=== PATIENT | male | born 1975 | race Caucasian/White ===

== ENCOUNTER 2017-08-05 19:11 | Inpatient (IN) | payer MEDICAID, OTHER ==
[2017-08-05 21:57] LABS: ADD MAN DIFF? NO
[2017-08-05 21:59] LABS: BASOPHIL # 0.1 10^3/ul (0.0-0.1); EOSINOPHILS # 0.1 10^3/ul (0.0-0.5); EOSINOPHILS % 1.7 % (0.0-7.0); HEMATOCRIT 48.5 % (42.0-52.0); HEMOGLOBIN 16.2 g/dl (14.0-18.0); LYMPHOCYTES # 1.6 10^3/ul (0.8-2.9); LYMPHOCYTES % 22.9 % (15.0-51.0); MEAN CORPUSCULAR HEMOGLOBIN 28.9 pg (29.0-33.0); MEAN CORPUSCULAR HGB CONC 33.4 g/dl (32.0-37.0); MEAN CORPUSCULAR VOLUME 86.5 fl (82.0-101.0); MEAN PLATELET VOLUME 9.6 fl (7.4-10.4); MONOCYTE # 0.3 10^3/ul (0.3-0.9); MONOCYTES % 4.7 % (0.0-11.0); NEUTROPHIL # 4.9 10^3/ul (1.6-7.5); NEUTROPHILS % 69.3 % (39.0-77.0); PLATELET COUNT 398 10^3/UL (140-415); RED BLOOD COUNT 5.61 10^6/ul (4.70-6.10); RED CELL DISTRIBUTION WIDTH 12.5 % (11.5-14.5)
[2017-08-05 22:15] LABS: ANION GAP 17 (8-16); BLOOD UREA NITROGEN 19 mg/dl (7-20); CALCIUM 9.8 mg/dl (8.4-10.2); CARBON DIOXIDE 22 mmol/L (21-31); CHLORIDE 109 mmol/L (97-110); CREATININE 1.26 mg/dl (0.61-1.24); GLUCOSE 117 mg/dl (70-220); POTASSIUM 3.9 mmol/L (3.5-5.1); SODIUM 144 mmol/L (135-144)
[2017-08-05] MEDS: SOD CHLORIDE 0.9% 500 ML IV (22:20)
[2017-08-05 22:28] LABS: B-TYPE NATRIURETIC PEPTIDE 6820 PG/ML (0-125); TROPONIN-I 0.029 ng/ml (0.000-0.120)
[2017-08-05] MEDS: ASPIRIN 81 MG TAB PO (23:02)
[2017-08-05] MEDS: ENALAPRILAT 1.25 MG INJ IV (23:02)
[2017-08-05 23:37] LABS: ALANINE AMINOTRANSFERASE 111 IU/L (13-69); ALBUMIN 3.7 g/dl (3.3-4.9); ALBUMIN/GLOBULIN RATIO 1.23; ALKALINE PHOSPHATASE 85 IU/L (42-121); ANION GAP 16 (8-16); ASPARTATE AMINO TRANSFERASE 62 IU/L (15-46); BILIRUBIN,INDIRECT 0.4 mg/dl (0-1.1); BILIRUBIN,TOTAL 0.4 mg/dl (0.2-1.3); BLOOD UREA NITROGEN 18 mg/dl (7-20); CALCIUM 9.2 mg/dl (8.4-10.2); CARBON DIOXIDE 19 mmol/L (21-31); CHLORIDE 112 mmol/L (97-110); CREATININE 1.17 mg/dl (0.61-1.24); GLUCOSE 117 mg/dl (70-220); LIPASE 145 U/L (23-300); POTASSIUM 3.8 mmol/L (3.5-5.1); SODIUM 143 mmol/L (135-144); TOTAL PROTEIN 6.7 g/dl (6.1-8.1)
[2017-08-05 23:45] LABS: B-TYPE NATRIURETIC PEPTIDE 5850 PG/ML (0-125)
[2017-08-05 23:49] LABS: INR 1.03; PROTIME 13.6 Sec (11.9-14.9); PT RATIO 1.1
[2017-08-05 23:50] LABS: PARTIAL THROMBOPLASTIN TIME 29.7 Sec (25.0-35.0)
[2017-08-06] MEDS: FUROSEMIDE 40 MG INJ IV (00:22)
[2017-08-06] MEDS ORDERED: ALBUTEROL/IPRATROPIUM (NEB) 3 ML AMP HHN (03:00)
[2017-08-06] MEDS ORDERED: ONDANSETRON 4 MG INJ IV (03:00)
[2017-08-06] MEDS ORDERED: NACL 0.9% 3 ML SYG IV (03:00)
[2017-08-06] MEDS ORDERED: NITROGLYCERIN (SL) 0.4 MG TAB SL (03:00)
[2017-08-06] MEDS ORDERED: morphine 2 MG INJ IV (03:00)
[2017-08-06 07:36] LABS: ADD MAN DIFF? NO
[2017-08-06 07:38] LABS: BASOPHIL # 0.1 10^3/ul (0.0-0.1); BASOPHILS % 0.8 % (0.0-2.0); EOSINOPHILS # 0.2 10^3/ul (0.0-0.5); EOSINOPHILS % 2.1 % (0.0-7.0); HEMATOCRIT 44.5 % (42.0-52.0); HEMOGLOBIN 14.7 g/dl (14.0-18.0); LYMPHOCYTES # 1.2 10^3/ul (0.8-2.9); MEAN CORPUSCULAR HEMOGLOBIN 28.7 pg (29.0-33.0); MEAN CORPUSCULAR VOLUME 86.7 fl (82.0-101.0); MEAN PLATELET VOLUME 10.1 fl (7.4-10.4); MONOCYTE # 0.5 10^3/ul (0.3-0.9); MONOCYTES % 6.7 % (0.0-11.0); NEUTROPHIL # 5.4 10^3/ul (1.6-7.5); NEUTROPHILS % 74.1 % (39.0-77.0); PLATELET COUNT 385 10^3/UL (140-415); RED BLOOD COUNT 5.13 10^6/ul (4.70-6.10); RED CELL DISTRIBUTION WIDTH 12.4 % (11.5-14.5)
[2017-08-06 07:38] LABS: WHITE BLOOD COUNT 7.3 10^3/ul (4.8-10.8)
[2017-08-06 07:57] LABS: HEMOGLOBIN A1C 5.8 % (0-5.9)
[2017-08-06 08:00] LABS: CREATINE KINASE 47 IU/L (23-200)
[2017-08-06 08:04] LABS: ALANINE AMINOTRANSFERASE 102 IU/L (13-69); ALBUMIN 3.9 g/dl (3.3-4.9); ALBUMIN/GLOBULIN RATIO 1.62; ALKALINE PHOSPHATASE 75 IU/L (42-121); ANION GAP 18 (8-16); ASPARTATE AMINO TRANSFERASE 45 IU/L (15-46); BILIRUBIN,INDIRECT 0.7 mg/dl (0-1.1); BILIRUBIN,TOTAL 0.7 mg/dl (0.2-1.3); BLOOD UREA NITROGEN 20 mg/dl (7-20); CALCIUM 9.1 mg/dl (8.4-10.2); CARBON DIOXIDE 25 mmol/L (21-31); CHLORIDE 105 mmol/L (97-110); CHOL/HDL RATIO 4.8 RATIO; CHOLESTEROL 145 mg/dl (100-200); GLUCOSE 93 mg/dl (70-220); HDL CHOLESTEROL 30 mg/dl (27-67); LDL CHOLESTEROL,CALCULATED 80 mg/dl; MAGNESIUM 1.8 mg/dl (1.7-2.5); POTASSIUM 3.1 mmol/L (3.5-5.1); SODIUM 145 mmol/L (135-144); TOTAL PROTEIN 6.3 g/dl (6.1-8.1); TRIGLYCERIDES 174 mg/dl (0-149)
[2017-08-06 08:11] LABS: CK INDEX 2.4; TROPONIN-I 0.029 ng/ml (0.000-0.120)
[2017-08-06 08:14] LABS: CK-MB 1.14 ng/ml (0.0-2.4)
[2017-08-06] MEDS: FUROSEMIDE 20 MG INJ IV (09:28)
[2017-08-06] MEDS: HEPARIN 5,000 UNIT/0.5 ML VIAL SC ×2 (09:29→21:04)
[2017-08-06 11:04] LABS: CREATINE KINASE 48 IU/L (23-200)
[2017-08-06 11:13] LABS: CK INDEX 2.7; TROPONIN-I 0.021 ng/ml (0.000-0.120)
[2017-08-06 11:15] LABS: CK-MB 1.31 ng/ml (0.0-2.4)
[2017-08-06 12:09] LABS: FREE T4 (FREE THYROXINE) 1.15 ng/dl (0.64-1.79); T4 (THYROXINE) 10.2 ug/dl (5.5-11.0)
[2017-08-06] MEDS ORDERED: POTASSIUM CHLORIDE (SR) 20 MEQ TAB PO (12:09)
[2017-08-06] MEDS: POTASSIUM CHLORIDE (SR) 20 MEQ TAB PO (12:11)
[2017-08-06] MEDS: AMLODIPINE 10 MG TAB PO (15:51)
[2017-08-06] MEDS ORDERED: morphine LIQ (10 MG/5 ML) CUP PO (22:00)
[2017-08-07 06:41] LABS: ADD MAN DIFF? NO
[2017-08-07 06:46] LABS: WHITE BLOOD COUNT 6.3 10^3/ul (4.8-10.8)
[2017-08-07 06:46] LABS: BASOPHIL # 0.1 10^3/ul (0.0-0.1); BASOPHILS % 0.8 % (0.0-2.0); EOSINOPHILS # 0.2 10^3/ul (0.0-0.5); EOSINOPHILS % 2.5 % (0.0-7.0); HEMATOCRIT 45.2 % (42.0-52.0); HEMOGLOBIN 15.2 g/dl (14.0-18.0); LYMPHOCYTES # 1.3 10^3/ul (0.8-2.9); LYMPHOCYTES % 20.8 % (15.0-51.0); MEAN CORPUSCULAR HEMOGLOBIN 28.9 pg (29.0-33.0); MEAN CORPUSCULAR HGB CONC 33.6 g/dl (32.0-37.0); MEAN CORPUSCULAR VOLUME 85.9 fl (82.0-101.0); MEAN PLATELET VOLUME 9.8 fl (7.4-10.4); MONOCYTE # 0.5 10^3/ul (0.3-0.9); MONOCYTES % 7.3 % (0.0-11.0); NEUTROPHIL # 4.3 10^3/ul (1.6-7.5); NEUTROPHILS % 68.3 % (39.0-77.0); PLATELET COUNT 375 10^3/UL (140-415); RED BLOOD COUNT 5.26 10^6/ul (4.70-6.10); RED CELL DISTRIBUTION WIDTH 12.5 % (11.5-14.5)
[2017-08-07 07:16] LABS: ANION GAP 15 (8-16); BLOOD UREA NITROGEN 18 mg/dl (7-20); CALCIUM 8.9 mg/dl (8.4-10.2); CARBON DIOXIDE 27 mmol/L (21-31); CHLORIDE 105 mmol/L (97-110); CREATININE 1.12 mg/dl (0.61-1.24); GLUCOSE 98 mg/dl (70-220); PHOSPHORUS 4.6 mg/dl (2.5-4.9); POTASSIUM 3.4 mmol/L (3.5-5.1); SODIUM 144 mmol/L (135-144)
[2017-08-07] MEDS: HEPARIN 5,000 UNIT/0.5 ML VIAL SC ×2 (08:45→20:48)
[2017-08-07] MEDS: AMLODIPINE 10 MG TAB PO (08:45)
[2017-08-07] MEDS: FUROSEMIDE 40 MG INJ IV (08:46)
[2017-08-07] MEDS: POTASSIUM CHLORIDE (SR) 20 MEQ TAB PO (10:46)
[2017-08-07] MEDS ORDERED: NICOTINE POLACRILEX 2 MG GUM BUCCAL (18:00)
[2017-08-08 06:14] LABS: ANION GAP 15 (8-16); BLOOD UREA NITROGEN 24 mg/dl (7-20); CALCIUM 9.3 mg/dl (8.4-10.2); CARBON DIOXIDE 25 mmol/L (21-31); CHLORIDE 105 mmol/L (97-110); GLUCOSE 104 mg/dl (70-220); MAGNESIUM 2.1 mg/dl (1.7-2.5); POTASSIUM 3.4 mmol/L (3.5-5.1); SODIUM 142 mmol/L (135-144)
[2017-08-08] MEDS: AMLODIPINE 10 MG TAB PO (08:17)
[2017-08-08] MEDS: LISINOPRIL 5 MG TAB PO (08:17)
[2017-08-08] MEDS: POTASSIUM CHLORIDE (SR) 20 MEQ TAB PO (08:18)
[2017-08-08] MEDS: FUROSEMIDE 40 MG INJ IV (08:19)
[2017-08-08] MEDS: HEPARIN 5,000 UNIT/0.5 ML VIAL SC (08:23)
[2017-08-08] MEDS: ACETAMINOPHEN 325 MG TAB PO (10:10)
== END 2017-08-08 18:30 | disposition home or self-care (01) | DRG 293 ==
LOC: TEL 08-06 00:57 → E/R 19:11 → MS2 08-07 13:23
DX: I11.0 Hypertensive heart disease with heart failure (principal); I50.23 Acute on chronic systolic (congestive) heart failure
CPT/HCPCS: 36415; 71045; 80048; 80053; 80061; 82550; 82553; 83036; 83690; 83735; 83880; 84100; 84436; 84439; 84443; 84484; 85025; 85610; 85730; 86850; 86900; 86901; 93005; 93306; 96361; 96374; 96375; 99285-25

== ENCOUNTER 2018-08-12 12:20 | Observation (INO) | payer OTHER, MEDICAID ==
[2018-08-12] MEDS: hydrALAzine 20 MG INJ IV ×2 (17:06→19:33)
[2018-08-12 17:11] LABS: ADD MAN DIFF? NO
[2018-08-12 17:12] LABS: WHITE BLOOD COUNT 6.8 10^3/ul (4.8-10.8)
[2018-08-12 17:12] LABS: BASOPHIL # 0.1 10^3/ul (0.0-0.1); BASOPHILS % 0.9 % (0.0-2.0); EOSINOPHILS # 0.2 10^3/ul (0.0-0.5); EOSINOPHILS % 3.4 % (0.0-7.0); HEMATOCRIT 47.1 % (42.0-52.0); HEMOGLOBIN 16.3 g/dl (14.0-18.0); LYMPHOCYTES # 1.3 10^3/ul (0.8-2.9); LYMPHOCYTES % 18.8 % (15.0-51.0); MEAN CORPUSCULAR HEMOGLOBIN 28.8 pg (29.0-33.0); MEAN CORPUSCULAR HGB CONC 34.6 g/dl (32.0-37.0); MEAN CORPUSCULAR VOLUME 83.2 fl (82.0-101.0); MEAN PLATELET VOLUME 9.5 fl (7.4-10.4); MONOCYTE # 0.5 10^3/ul (0.3-0.9); MONOCYTES % 7.7 % (0.0-11.0); NEUTROPHIL # 4.6 10^3/ul (1.6-7.5); NEUTROPHILS % 68.5 % (39.0-77.0); PLATELET COUNT 282 10^3/UL (140-415); RED BLOOD COUNT 5.66 10^6/ul (4.70-6.10); RED CELL DISTRIBUTION WIDTH 12.2 % (11.5-14.5)
[2018-08-12 17:34] LABS: ANION GAP 9 (5-13); BLOOD UREA NITROGEN 13 mg/dl (7-20); CALCIUM 8.9 mg/dl (8.4-10.2); CARBON DIOXIDE 29 mmol/L (21-31); CHLORIDE 106 mmol/L (97-110); CREATININE 1.03 mg/dl (0.61-1.24); Estimated GFR > 60 mL/min (>60); GLUCOSE 103 mg/dl (70-220); POTASSIUM 3.2 mmol/L (3.5-5.1); SODIUM 144 mmol/L (135-144)
[2018-08-12 17:46] LABS: TROPONIN-I 0.032 ng/ml (0.000-0.120)
[2018-08-12] MEDS ORDERED: ACETAMINOPHEN 325 MG TAB PO (18:30)
[2018-08-12] MEDS ORDERED: ONDANSETRON 4 MG INJ IV (18:30)
[2018-08-12] MEDS ORDERED: NACL 0.9% 3 ML SYG IV (19:00)
[2018-08-12] MEDS ORDERED: HYDROCODONE/APAP (5/325) TAB PO (19:00)
[2018-08-12] MEDS ORDERED: ONDANSETRON 4 MG TAB PO (19:00)
[2018-08-12] MEDS: LISINOPRIL 5 MG TAB PO (19:00)
[2018-08-12] MEDS ORDERED: DOCUSATE SODIUM 100 MG CAP PO (19:00)
[2018-08-12] MEDS: HYDROCODONE/APAP (5/325) TAB PO (20:12)
[2018-08-12] MEDS: ACETAMINOPHEN 325 MG TAB PO (23:08)
[2018-08-12] MEDS: LABETALOL HCL 20MG INJ IV (23:08)
[2018-08-13] MEDS: FAMOTIDINE 20 MG TAB PO ×2 (00:22→08:28)
[2018-08-13] MEDS: ENOXAPARIN 40 MG/0.4 ML SYG SC ×2 (00:25→09:07)
[2018-08-13 05:46] LABS: ADD MAN DIFF? NO
[2018-08-13 05:52] LABS: BASOPHIL # 0.1 10^3/ul (0.0-0.1); BASOPHILS % 0.8 % (0.0-2.0); EOSINOPHILS # 0.2 10^3/ul (0.0-0.5); EOSINOPHILS % 1.8 % (0.0-7.0); HEMATOCRIT 43.9 % (42.0-52.0); HEMOGLOBIN 15.3 g/dl (14.0-18.0); LYMPHOCYTES # 1.4 10^3/ul (0.8-2.9); LYMPHOCYTES % 16.2 % (15.0-51.0); MEAN CORPUSCULAR HEMOGLOBIN 28.9 pg (29.0-33.0); MEAN CORPUSCULAR HGB CONC 34.9 g/dl (32.0-37.0); MONOCYTE # 0.6 10^3/ul (0.3-0.9); MONOCYTES % 6.5 % (0.0-11.0); NEUTROPHIL # 6.3 10^3/ul (1.6-7.5); NEUTROPHILS % 74.3 % (39.0-77.0); PLATELET COUNT 290 10^3/UL (140-415); RED BLOOD COUNT 5.29 10^6/ul (4.70-6.10); RED CELL DISTRIBUTION WIDTH 12.4 % (11.5-14.5)
[2018-08-13 05:52] LABS: WHITE BLOOD COUNT 8.5 10^3/ul (4.8-10.8)
[2018-08-13 06:42] LABS: HEMOGLOBIN A1C 5.6 % (0-5.9); TROPONIN-I 0.032 ng/ml (0.000-0.120)
[2018-08-13 06:50] LABS: ANION GAP 11 (5-13); BLOOD UREA NITROGEN 18 mg/dl (7-20); CALCIUM 9.4 mg/dl (8.4-10.2); CARBON DIOXIDE 26 mmol/L (21-31); CHLORIDE 105 mmol/L (97-110); CREATININE 1.19 mg/dl (0.61-1.24); Estimated GFR > 60 mL/min (>60); GLUCOSE 109 mg/dl (70-220); POTASSIUM 3.2 mmol/L (3.5-5.1); SODIUM 142 mmol/L (135-144)
[2018-08-13] MEDS: HYDROCODONE/APAP (5/325) TAB PO (08:28)
[2018-08-13] MEDS: LISINOPRIL 5 MG TAB PO (08:35)
[2018-08-13] MEDS: hydrALAzine 20 MG INJ IV (10:00)
[2018-08-13] MEDS: LISINOPRIL 10 MG TAB PO (13:37)
[2018-08-13] MEDS: FUROSEMIDE 40 MG INJ IV (13:38)
[2018-08-13] MEDS: POTASSIUM CHLORIDE (SR) 20 MEQ TAB PO (16:18)
== END 2018-08-13 16:50 | disposition home or self-care (01) ==
LOC: 6WM 18:27 → E/R 12:20
DX: I16.0 Hypertensive urgency (principal); I11.0 Hypertensive heart disease with heart failure; I50.40 Unspecified combined systolic (congestive) and diastolic (congestive) heart failure; Z91.14 Patient's other noncompliance with medication regimen; R51 Headache
CPT/HCPCS: 36415; 70450; 71045; 80048; 83036; 84443; 84484; 85025; 93005; 93306; 96374; 99285-25; G0378

== ENCOUNTER 2018-10-20 18:30 | Emergency (ER) | payer OTHER ==
[2018-10-20] MEDS ORDERED: ACETAMINOPHEN 325 MG TAB PO (20:30)
== END 2018-10-20 20:29 | disposition home or self-care (01) ==
LOC: E/R 18:30
DX: I11.0 Hypertensive heart disease with heart failure (principal); I50.9 Heart failure, unspecified
CPT/HCPCS: 99282; Z7502